=== PATIENT | male | born 1980 | race Caucasian/White ===

== ENCOUNTER 2018-10-03 13:19 | Emergency (ER) | payer MEDICAID ==
[~2018-10-03] VITALS: Ht 170.2 cm; Wt 157.7 kg
[2018-10-03 13:19] VITALS: BP 165/78
[2018-10-03] MEDS ORDERED: DULO1CAP2 PO (13:26)
== END 2018-10-03 15:41 | disposition left against medical advice (07) ==
LOC: M ED 13:19
DX: Z53.21 Procedure and treatment not carried out due to patient leaving prior to being seen by health care provider (principal)

== ENCOUNTER 2020-12-07 15:07 | Emergency (ER) | payer MEDICAID ==
[~2020-12-07] VITALS: Ht 170.2 cm; Wt 155.8 kg
[~2020-12-07 15:07] MED LIST: DULO1CAP5 PO
[2020-12-07] MEDS ORDERED: SEMA7TAB (15:18)
[2020-12-07] MEDS ORDERED: TRAZ-252 (15:18)
[2020-12-07] MEDS ORDERED: ESCITALOPRAM (15:18)
[2020-12-07] MEDS ORDERED: ALBU8.5H (15:18)
--- NOTE | 2020-12-07 15:39 | REP ---
INDICATION: injury, swelling COMPARISON: None. TECHNIQUE: Four views right ankle. FINDINGS: There is no evidence of acute fracture, dislocation, or intrinsic bone disease.Ankle mortise is anatomic. There is an oval smooth subcentimeter soft tissue calcification in the distal calf medially. IMPRESSION: No fracture or dislocation. <Electronically signed by Andrey Cunningham > 12/07/20 [id number]
[2020-12-07 18:09] VITALS: BP 148/81
== END 2020-12-07 18:41 | disposition home or self-care (01) ==
LOC: M ED 15:07
DX: S93.401A Sprain of unspecified ligament of right ankle, initial encounter (principal); X58.XXXA Exposure to other specified factors, initial encounter; Y92.9 Unspecified place or not applicable; Y93.02 Activity, running; Y99.9 Unspecified external cause status; R73.09 Other abnormal glucose; I10 Essential (primary) hypertension; J45.909 Unspecified asthma, uncomplicated; F41.9 Anxiety disorder, unspecified; F32.9 Major depressive disorder, single episode, unspecified; F17.200 Nicotine dependence, unspecified, uncomplicated; E66.9 Obesity, unspecified; Z88.8 Allergy status to other drugs, medicaments and biological substances